=== PATIENT | male | born 1980 | race Two or more races ===

== ENCOUNTER 2018-03-24 15:30 | Outpatient (CLI) | payer OTHER ==
[~2018-03-24] VITALS: Ht 182.9 cm; Wt 93.0 kg
== END 2018-03-24 15:45 | disposition home or self-care (01) ==
LOC: OFIC 805 15:30
DX: H91.8X3 Other specified hearing loss, bilateral (principal); H61.23 Impacted cerumen, bilateral

== ENCOUNTER → 2019-08-23 | Outpatient (CLI) | payer OTHER ==
[~2019-08-23] MED LIST: AUGMENTIN XR 11 EACH PO; CIPRODEX OTIC7.5 ML OT; MEDROLPACK PO
== END | disposition home or self-care (01) ==
LOC: OFIC 805 12:15
DX: H90.3 Sensorineural hearing loss, bilateral (principal); M54.2 Cervicalgia; H60.02 Abscess of left external ear; H61.23 Impacted cerumen, bilateral; H60.8X2 Other otitis externa, left ear

== ENCOUNTER 2019-08-29 09:30 | Outpatient (CLI) | payer OTHER ==
[2019-08-29] MEDS ORDERED: CILOXAN5 ML OT (12:23)
== END 2019-08-29 12:22 | disposition home or self-care (01) ==
LOC: OFIC 805 09:30
DX: H60.8X2 Other otitis externa, left ear (principal); H66.42 Suppurative otitis media, unspecified, left ear; H61.23 Impacted cerumen, bilateral

== ENCOUNTER 2019-09-04 09:21 | Outpatient (CLI) | payer OTHER ==
[~2019-09-04] VITALS: Ht 182.9 cm; Wt 90.7 kg
[~2019-09-04 09:21] MED LIST changes: +CILOXAN5 ML OT
== END 2019-09-04 13:01 | disposition home or self-care (01) ==
LOC: OFIC 805 09:21
PROVIDERS: ATTEND Otolaryngology
DX: H66.42 Suppurative otitis media, unspecified, left ear (principal); H60.8X2 Other otitis externa, left ear; H91.8X2 Other specified hearing loss, left ear

== ENCOUNTER 2020-03-04 15:13 | Outpatient (CLI) | payer OTHER | END 2020-03-04 15:54 | disposition home or self-care (01) | LOC: RAD 15:13 | PROVIDERS: ATTEND Orthopaedic Surgery | DX: M25.562 Pain in left knee (principal) ==

== ENCOUNTER 2020-08-28 10:42 | Outpatient (CLI) | payer OTHER | END 2020-08-28 12:34 | disposition home or self-care (01) | LOC: OFIC 805 10:42 | PROVIDERS: ATTEND Otolaryngology Otology & Neurotology | DX: J31.0 Chronic rhinitis (principal); J02.8 Acute pharyngitis due to other specified organisms; K21.9 Gastro-esophageal reflux disease without esophagitis; H61.23 Impacted cerumen, bilateral ==

== ENCOUNTER 2021-07-11 11:29 | Emergency (ER) | payer OTHER ==
[~2021-07-11] VITALS: Ht 180.3 cm; Wt 90.7 kg
[2021-07-11] MEDS ORDERED: VASOTEC5 MG PO (11:39)
== END 2021-07-11 14:40 | disposition home or self-care (01) ==
LOC: ER 11:29
DX: L02.213 Cutaneous abscess of chest wall (principal)